=== PATIENT | female | born 1965 | race Caucasian/White ===

== ENCOUNTER → 2020-10-04 | Outpatient (CLI) | payer BC ==
[~2020-10-04] MED LIST: MACROBID 100 M100 MG PO
[2020-10-04 12:20] LABS: HEMOGLOBIN 11.2 gm/dl (12.3-15.3); RED BLOOD COUNT 4.2 M/UL (4.00-5.10); WHITE BLOOD COUNT 29.9 K/UL (4.5-11.0)
[2020-10-04 12:47] LABS: BUN/CREATININE RATIO 21 (0-10)
== END ==
LOC: LAB 11:29
PROVIDERS: Nurse Practitioner
DX: R10.84 Generalized abdominal pain (principal); R11.0 Nausea; R51.9 Headache, unspecified; R53.81 Other malaise
CPT/HCPCS: 36415; 80053; 83690; 85025

== ENCOUNTER → 2020-10-09 | Outpatient (CLI) | payer BC ==
[2020-10-09 11:27] LABS: HEMOGLOBIN 11.3 gm/dl (12.3-15.3); RED BLOOD COUNT 4.25 M/UL (4.00-5.10); WHITE BLOOD COUNT 7.9 K/UL (4.5-11.0)
[2020-10-09 11:47] LABS: BUN/CREATININE RATIO 15 (0-10)
== END ==
LOC: LAB 10:57
PROVIDERS: Nurse Practitioner
DX: R00.0 Tachycardia, unspecified (principal); R11.0 Nausea; R53.81 Other malaise; N30.00 Acute cystitis without hematuria; R51.9 Headache, unspecified; Z86.19 Personal history of other infectious and parasitic diseases
CPT/HCPCS: 36415; 80053; 85025

== ENCOUNTER → 2021-07-31 | Outpatient (CLI) | payer BC | LOC: KOH-I 08:37 | DX: M41.25 Other idiopathic scoliosis, thoracolumbar region (principal); M81.0 Age-related osteoporosis without current pathological fracture; M54.2 Cervicalgia; M54.50 Low back pain, unspecified; I10 Essential (primary) hypertension; E03.9 Hypothyroidism, unspecified; F41.9 Anxiety disorder, unspecified | CPT/HCPCS: 72080 ==